=== PATIENT | male | born 1975 | race Asian ===

== ENCOUNTER 2022-02-10 13:54 | Outpatient (CLI) | payer OTHER ==
--- NOTE | 2022-02-10 16:44 | MRI Report ---
PROCEDURE: Hand LT W/O INDICATIONS: PAIN IN LEFT FINGERS TECHNIQUE: Noncontrast oblique coronal T1 spin echo and T2 fast spin echo with fat saturation, axial and sagitta l T2 fast spin echo with fat saturation, through the thumb. COMPARISON: None. FINDINGS: Image quality: Excellent. Bones: The bones are normally aligned, without marrow contusions or fractures. No intra-osseous les ions. Metacarpophalangeal joint(s): T2 hyperintense signal about the ulnar collateral ligament, concerning for at least partial tear. The radial collateral ligament appears intact. The overlying aponeurosis of the adductor pollicis muscle also appears normal. T2 hyperintense signal is also seen in the volar plate region, concerning for injury. Interphalangeal joint(s): The accessory and proper collateral ligaments appear intact. The volar pl ate demonstrates normal morphology. The extensor central slip appears intact on sagittal images. Tendons: The visualized flexor and extensor tendons appear intact and in expected positions. Soft tissues: Visualized muscles demonstrate normal bulk and internal signal. No intramuscular mass es identified. No ganglion cysts. IMPRESSION: 1. Fluid signal in the ulnar collateral ligament and volar plate regions, concerning for injury. Reviewed by: Ayush Burch MD on 02/10/2022 4:43 PM PDT Approved by: Ayush Burch MD on 02/10/2022 4:43 PM PDT Station ID: [id number]
== END 2022-02-10 13:55 | disposition home or self-care (01) ==
LOC: DI 13:54
PROVIDERS: ATTEND Family Medicine
DX: M79.645 Pain in left finger(s) (principal); R93.6 Abnormal findings on diagnostic imaging of limbs; R93.89 Abnormal findings on diagnostic imaging of other specified body structures

== ENCOUNTER 2022-03-04 13:08 | Outpatient (CLI) | payer OTHER ==
--- NOTE | 2022-03-04 16:32 | MRI Report ---
PROCEDURE: Brain W/O INDICATIONS: Headache TECHNIQUE: Noncontrast axial T1 spin echo, axial T2 fast spin echo, sagittal and axial FLAIR, coronal T2 fast sp in echo, axial gradient echo, axial diffusion and ADC through the brain. COMPARISON: None. FINDINGS: Image quality: Excellent. CSF Spaces: Basal cisterns are patent. No extra-axial fluid collections. Ventricles are normal in size and shape. Brain: No intracranial masses or hemorrhage. Ariza/white matter interface is normal. Brainstem appe ars normal. Diffusion-weighted images demonstrate no acute ischemic insult. No chronic ischemic ins ults. Normal intravascular flow voids are present. Skull and face: Calvarium has normal marrow signal. Orbits appear normal. Sinuses: Sinuses and mastoids are predominantly clear. IMPRESSION: No acute finding or other significant abnormality to explain headache. Reviewed by: Isidro Ibrahim MD on 03/04/2022 4:31 PM PDT Approved by: Isidro Ibrahim MD on 03/04/2022 4:31 PM PDT Station ID: [id number]
== END 2022-03-04 13:09 | disposition home or self-care (01) ==
LOC: DI 13:08
PROVIDERS: ATTEND Family Medicine
DX: R51.9 Headache, unspecified (principal)

== ENCOUNTER 2022-06-03 12:10 | Outpatient (CLI) | payer OTHER | END 2022-06-03 12:11 | disposition home or self-care (01) | LOC: SC 12:10 | PROVIDERS: ATTEND Nurse Practitioner Family | DX: G47.33 Obstructive sleep apnea (adult) (pediatric) (principal) ==

== ENCOUNTER 2022-06-03 12:52 | Outpatient (CLI) | payer OTHER | END 2022-06-03 12:53 | disposition home or self-care (01) | LOC: RT 12:52 | PROVIDERS: ATTEND Physician Assistant | DX: J45.40 Moderate persistent asthma, uncomplicated (principal) | CPT/HCPCS: 94060 ==

== ENCOUNTER 2022-06-13 19:31 | Outpatient (CLI) | payer OTHER | END 2022-06-13 19:32 | disposition home or self-care (01) | LOC: SC 19:31 | PROVIDERS: ATTEND Nurse Practitioner Family | DX: I49.3 Ventricular premature depolarization (principal) | CPT/HCPCS: 95810 ==

== ENCOUNTER 2023-04-16 16:25 | Outpatient (CLI) | payer OTHER ==
--- NOTE | 2023-04-17 15:21 | MRI Report ---
PROCEDURE: KNEE WO - LT INDICATIONS: LEFT KNEE PAIN TECHNIQUE: Noncontrast sagittal PD fast spin echo and T2 fast spin echo with fat saturation, sagittal 3-D gradie nt sequence with fat saturation; coronal T1 spin echo and PD fast spin echo with fat saturation, and axial PD fast spin echo with fat saturation through the knee. COMPARISON: None. FINDINGS: Image quality: Excellent. Menisci: Signal abnormality involving posterior medial periphery of medial meniscus extending to infe rior articulating surface suggestive of focal oblique tear. The lateral meniscus is intact. The menis jessica root ligaments appear intact. Cruciate ligaments: The anterior and posterior cruciate ligaments appear intact. Medial structures: The medial collateral ligament appears thickened. The posterior oblique ligament , semimembranosus tendon insertions, and oblique popliteal ligament, and meniscocapsular junction amaya ear intact. Visualized portions of the pes anserinus tendons appear normal. No abnormal bursal flui d. Lateral structures: The lateral collateral ligament, long and short heads of the biceps femoris tend on appear intact. The popliteus tendon appears normal; the popliteofibular ligament appears intact. Iliotibial band appears normal. Anterior structures: The quadriceps and patellar tendons appear intact. Patellar alignment is estella l. No femoral trochlear dysplasia or ventral trochlear prominence. No edema in the infrapatellar fa t pad. Bones and cartilage: No bone marrow contusions or fractures. 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 Joint space: There is small knee joint fluid. No Pathak's cyst. Normal appearing synovial plicae ar e incidentally noted. IMPRESSION: 1. Subtle oblique tear involving posterior medial periphery of medial meniscus posterior horn extendi ng to inferior articulating surface. No focal lateral meniscal tear. 2. Low-grade MCL sprain. The cruciate ligaments are intact. 3. 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 No fracture or dislocation. Small joint effusion, no gross loose bodies. Reviewed by: Quique Krueger MD on 04/17/2023 2:20 PM AKDT Approved by: Quique Krueger MD on 04/17/2023 2:20 PM AKDT Station ID: [id number]
== END 2023-04-16 16:26 | disposition home or self-care (01) ==
LOC: DI 16:25
PROVIDERS: ATTEND Student in an Organized Health Care Education/Training Program
DX: S83.222A Peripheral tear of medial meniscus, current injury, left knee, initial encounter (principal); S83.412A Sprain of medial collateral ligament of left knee, initial encounter; M17.12 Unilateral primary osteoarthritis, left knee; M25.462 Effusion, left knee